=== PATIENT | male | born 1980 | race Caucasian/White ===

== ENCOUNTER 2017-09-27 09:19 | Emergency (ER) | payer BC, OTHER ==
[2017-09-27 09:53] LABS: #Basophils 0.2 thou/uL (0.0-0.2); #Eosinphils 0.2 thou/uL (0.0-0.7); #Lymphocytes 3.4 thou/uL (1.20-3.40); #Monocytes 0.9 thou/uL (0.11-0.59); #Neutrophils 5.6 thou/uL (1.40-6.50); %Basophils 1.6 % (0.0-1.0); %Eosinophils 2.2 % (0.0-10.0); %Lymphocytes 32.8 % (21.0-51.0); %Monocytes 8.9 % (0.0-10.0); %Neutrophils 54.6 % (42.0-75.0); Hemoglobin 14.6 g/dL (14.0-18.0); Mean Corpuscular HGB CONC 33.7 g/dL (32.0-36.0); Mean Corpuscular Hemoglobin 27.8 pg (27.0-31.0); Mean Corpuscular Volume 82.4 fl (80.0-94.0); Platelet Count 301 thou/uL (130-400); RBC Distribution Width 12.7 % (11.5-14.5); Red Blood Cell (RBC) Count 5.24 mill/uL (4.70-6.10); White Blood Cell (WBC) Count 10.2 thou/uL (4.8-10.8)
[2017-09-27 09:55] LABS: INR-International Normal Ratio 0.9
[2017-09-27 09:56] LABS: PTT 27.2 SEC (22.9-36.1)
[2017-09-27 10:06] LABS: ALT (SGPT) 64 U/L (8-55); AST (SGOT) 23 U/L (5-34); Albumin 4.3 g/dL (3.5-5.0); Alkaline Phosphatase 54 U/L (40-150); Anion Gap 14 mmol/L (10-20); BUN (Urea Nitrogen) 14 mg/dL (8.9-20.6); Bilirubin, Total 0.3 mg/dL (0.2-1.2); Calc. Creatinine Clearance 0 mL/min (70-130); Calcium 9.2 mg/dL (7.8-10.44); Carbon Dioxide 22 mmol/L (22-29); Chloride 104 mmol/L (98-107); Estimated GFR-MDRD 90; Globulin 2.3 g/dL (2.4-3.5); Glucose 148 mg/dL (70-105); Lipase 51 U/L (8-78); Potassium 3.4 mmol/L (3.5-5.1); Protein, Total 6.6 g/dL (6.0-8.3); Sodium 137 mmol/L (136-145)
--- NOTE | 2017-09-27 10:36 | CT ---
CT ABDOMEN AND PELVIS WITHOUT CONTRAST: HISTORY: Abdominal pain. Rectal bleeding. COMPARISON: None. FINDINGS: Lung bases are clear. No pericardial effusion. Diffuse hepatic steatosis. Appendix is visualized and is normal. No dilated loops of large or small bowel. No significant diverticular disease. There is a mass in the posterior cortex interpolar right kidney measuring 4.5 x 4.3 x 4.6 cm. There is also a mass of the lateral limb right adrenal gland measuring less than 10 Hounsfield units. This is round and likely adenoma. There is a punctate calculus interpolar left kidney. No evidence of obstructive uropathy. Fat-containing right-sided intraarticular hernia. Appendix is visualized and is normal. The skeleto n is unremarkable. IMPRESSION: 1. Right-sided renal mass posterior cortex interpolar right kidney measuring 4.5 x 4.3 x 4.6 cm conc erning for renal cell carcinoma. 2. Nonobstructive interpolar left renal calculus measuring less than 2 mm. 3. Right adrenal adenoma. 4. Diffuse steatosis. 5. No findings to explain patient's rectal bleeding. Dr. Ramos notified of findings via telephone at 9:58 a.m. CODE CR POS: [facility]
== END 2017-09-27 10:25 | disposition home or self-care (01) ==
LOC: SCSER 09:19
DX: K92.2 Gastrointestinal hemorrhage, unspecified (principal); E11.9 Type 2 diabetes mellitus without complications; I10 Essential (primary) hypertension; I25.10 Atherosclerotic heart disease of native coronary artery without angina pectoris; E66.9 Obesity, unspecified; E78.00 Pure hypercholesterolemia, unspecified; Z87.891 Personal history of nicotine dependence; Z79.891 Long term (current) use of opiate analgesic; Z79.899 Other long term (current) drug therapy
CPT/HCPCS: 74176; 80053; 82274; 83690; 85025; 85610; 85730; 86850; 86900; 86901

== ENCOUNTER 2017-09-29 15:06 | Outpatient (CLI) | payer OTHER ==
[~2017-09-29 15:06] MED LIST: Iopamidol 370 76% 100 ML VIAL ONE
--- NOTE | 2017-09-29 18:20 | CT ---
CT ABDOMEN AND PELVIS WITH AND WITHOUT IV CONTRAST: 09/29/17 HISTORY: Hematochezia. COMPARISON: 09/27/17. FINDINGS: The 0.2 cm calculus within a nondilated calyx of the left kidney is unchanged. Each renal collecting system, ureter, and the urinary bladder are decompressed without filling defect on the delayed images . The lobular heterogeneously enhancing mass at the medial posterior aspect of the right kidney is unch anged in appearance from the exam two days ago. Large adenoma of the right adrenal gland is stable. L iver is diffusely hypodense. No enlarged lymph nodes or free fluid are apparent. IMPRESSION: 1. Aggressive appearing right renal mass is unchanged from the exam two days ago. Renal cell car cinoma is favored. Please consider urologic evaluation. 2. Tiny nonobstructing left renal calculus, stable. 3. Right adrenal adenoma. 4. Hepatic steatosis. 5. No abnormalities are apparent to explain the patient's rectal bleeding. POS: [facility]
== END 2017-09-29 15:07 | disposition home or self-care (01) ==
LOC: CT 15:06
DX: D41.01 Neoplasm of uncertain behavior of right kidney (principal); D30.01 Benign neoplasm of right kidney; N20.0 Calculus of kidney; K76.0 Fatty (change of) liver, not elsewhere classified
CPT/HCPCS: 74178

== ENCOUNTER 2017-10-30 14:47 | Emergency (ER) | payer OTHER ==
[2017-10-30 15:38] LABS: #Basophils 0.2 thou/uL (0.0-0.2); #Eosinphils 0.4 thou/uL (0.0-0.7); #Lymphocytes 1.9 thou/uL (1.20-3.40); #Neutrophils 5.2 thou/uL (1.40-6.50); %Basophils 1.8 % (0.0-1.0); %Eosinophils 4.5 % (0.0-10.0); %Lymphocytes 21.7 % (21.0-51.0); %Neutrophils 60.1 % (42.0-75.0); Hemoglobin 12.8 g/dL (14.0-18.0); Mean Corpuscular HGB CONC 36.1 g/dL (32.0-36.0); Mean Corpuscular Hemoglobin 29.9 pg (27.0-31.0); Mean Corpuscular Volume 82.8 fl (80.0-94.0); Mean Platelet Volume 5.8 fL (7.4-10.4); Platelet Count 289 thou/uL (130-400); White Blood Cell (WBC) Count 8.7 thou/uL (4.8-10.8)
[2017-10-30 15:57] LABS: ALT (SGPT) 31 U/L (8-55); AST (SGOT) 22 U/L (5-34); Albumin 3.7 g/dL (3.5-5.0); Alkaline Phosphatase 50 U/L (40-150); Anion Gap 17 mmol/L (10-20); BUN (Urea Nitrogen) 17 mg/dL (8.9-20.6); Bilirubin, Total 0.3 mg/dL (0.2-1.2); Calc. Creatinine Clearance 0 mL/min (70-130); Calcium 9.5 mg/dL (7.8-10.44); Carbon Dioxide 22 mmol/L (22-29); Chloride 103 mmol/L (98-107); Estimated GFR-MDRD 40; Globulin 3.1 g/dL (2.4-3.5); Glucose 129 mg/dL (70-105); Lipase 33 U/L (8-78); Potassium 3.9 mmol/L (3.5-5.1); Protein, Total 6.8 g/dL (6.0-8.3); Sodium 138 mmol/L (136-145)
[2017-10-30 15:58] LABS: CKMB 0.4 ng/mL (0-6.6); Troponin I Less than 0.010 ng/mL (< 0.028)
[2017-10-30 16:23] LABS: Bilirubin Negative (Negative); Blood, Urine Negative (Negative); Clarity Clear (Clear); Glucose, Urine (Dipstick) Negative (Negative); Leukocyte Negative (Negative); Nitrite Negative (Negative); Protein, Urine (Dipstick) 30 mg/dL (Neg-Trace); Specific Gravity, Urine 1.025 (1.005-1.030); Urobilinogen 0.2 mg/dL (0.2-1.0); pH, Urine 6.5 (5.0-9.0)
[2017-10-30 16:32] LABS: RBC/HPF 0-3 HPF (0-3); Squamous Epithelial 0-3 HPF (0-3); WBC/HPF 0-3 HPF (0-3)
--- NOTE | 2017-11-23 13:29 | EKG ---
Test Reason : Blood Pressure : / mmHG Vent. Rate : 074 BPM Atrial Rate : 074 BPM P-R Int : 182 ms QRS Dur : 088 ms QT Int : 368 ms P-R-T Axes : 025 021 023 degrees QTc Int : 408 ms Normal sinus rhythm Nonspecific T wave abnormality Normal ECG Confirmed by CATHERINE JEFFERY MD ([id number]), film editor supervisor FATEMEH MONTANEZ ([id number]) on 11/23/2017 1:29:14 PM Referred By: JOSE D Confirmed By:CATHERINE JEFFERY MD
== END 2017-10-30 17:15 | disposition home or self-care (01) ==
LOC: SCSER 14:47
DX: R53.1 Weakness (principal); E11.9 Type 2 diabetes mellitus without complications; I10 Essential (primary) hypertension; E66.9 Obesity, unspecified; I25.10 Atherosclerotic heart disease of native coronary artery without angina pectoris; E78.00 Pure hypercholesterolemia, unspecified; Z87.891 Personal history of nicotine dependence; Z79.899 Other long term (current) drug therapy
CPT/HCPCS: 80053; 81003; 81015; 82553; 83690; 84484; 85025; 93005

== ENCOUNTER 2017-11-01 22:38 | Emergency (ER) | payer OTHER ==
--- NOTE | 2017-11-01 23:23 | RAD ---
PA AND LATERAL OF THE CHEST: 11/01/17 INDICATION: History of cough and fever. FINDINGS: No focal consolidation is evident. Heart size is normal. No definite pleural effusion is evident. No acute osseous abnormality is evident. IMPRESSION: No acute cardiopulmonary abnormality. POS: [facility]
[2017-11-01 23:25] LABS: #Basophils 0.2 thou/uL (0.0-0.2); #Eosinphils 0.5 thou/uL (0.0-0.7); #Lymphocytes 3.1 thou/uL (1.20-3.40); #Monocytes 1.1 thou/uL (0.11-0.59); #Neutrophils 5.2 thou/uL (1.40-6.50); %Basophils 1.6 % (0.0-1.0); %Eosinophils 5.3 % (0.0-10.0); %Neutrophils 51.2 % (42.0-75.0); Hemoglobin 12.4 g/dL (14.0-18.0); Mean Corpuscular Hemoglobin 29.1 pg (27.0-31.0); Mean Corpuscular Volume 83.2 fl (80.0-94.0); Mean Platelet Volume 5.7 fL (7.4-10.4); Platelet Count 326 thou/uL (130-400); RBC Distribution Width 12.2 % (11.5-14.5); Red Blood Cell (RBC) Count 4.26 mill/uL (4.70-6.10); White Blood Cell (WBC) Count 10.1 thou/uL (4.8-10.8)
[2017-11-01 23:35] LABS: Anion Gap 14 mmol/L (10-20); BUN (Urea Nitrogen) 17 mg/dL (8.9-20.6); Calc. Creatinine Clearance 0 mL/min (70-130); Calcium 9.2 mg/dL (7.8-10.44); Carbon Dioxide 23 mmol/L (22-29); Chloride 106 mmol/L (98-107); Estimated GFR-MDRD 41; Glucose 121 mg/dL (70-105); Sodium 139 mmol/L (136-145)
== END 2017-11-02 00:10 | disposition home or self-care (01) ==
LOC: SCSER 22:38
DX: R50.9 Fever, unspecified (principal); E11.9 Type 2 diabetes mellitus without complications; E66.9 Obesity, unspecified; I10 Essential (primary) hypertension; E78.00 Pure hypercholesterolemia, unspecified; I25.10 Atherosclerotic heart disease of native coronary artery without angina pectoris; Z87.891 Personal history of nicotine dependence; Z85.528 Personal history of other malignant neoplasm of kidney
CPT/HCPCS: 36415; 71046; 80048; 85025; 87040

== ENCOUNTER 2018-02-10 13:50 | Outpatient (CLI) | payer OTHER ==
--- NOTE | 2018-02-10 14:50 | RAD ---
PELVIS ONE VIEW: History: Pain. Comparison: None. FINDINGS: Mild narrowing of both SI joints. No acute fracture. Os acetabulum on the right. IMPRESSION: No acute fracture or malalignment. POS: [facility]
--- NOTE | 2018-02-10 14:51 | RAD ---
SACRUM AND COCCYX STANDARD: History: Pain. Comparison: None. FINDINGS: There is no acute fracture or malalignment. No erosions. No periostitis. Mild degenerative changes of the right hip. IMPRESSION: No acute abnormality. POS: [facility]
== END 2018-02-10 13:51 | disposition home or self-care (01) ==
LOC: SCSRAD 13:50
PROVIDERS: ATTEND Family Medicine
DX: M53.3 Sacrococcygeal disorders, not elsewhere classified (principal); R10.2 Pelvic and perineal pain; I10 Essential (primary) hypertension
CPT/HCPCS: 72170; 72220

== ENCOUNTER 2018-04-07 11:52 | Emergency (ER) | payer OTHER, SELFPAY ==
--- NOTE | 2018-04-07 14:07 | RAD ---
TWO VIEWS OF THE CHEST: COMPARISON: 11/01/17. HISTORY: Intermittent subjective fever and cough. FINDINGS: Two views of the chest show normal sized cardiomediastinal silhouette. There is no evidence of consol idation, mass, or pleural effusion. The bones are unremarkable. IMPRESSION: No evidence of acute cardiopulmonary disease. POS: [facility]
== END 2018-04-07 13:14 | disposition home or self-care (01) ==
LOC: SCSER 11:52
DX: J06.9 Acute upper respiratory infection, unspecified (principal); I10 Essential (primary) hypertension; B34.9 Viral infection, unspecified; E11.9 Type 2 diabetes mellitus without complications; E66.9 Obesity, unspecified; Z87.891 Personal history of nicotine dependence; Z79.82 Long term (current) use of aspirin; Z79.899 Other long term (current) drug therapy; Z79.891 Long term (current) use of opiate analgesic
CPT/HCPCS: 71046; 87081; 87430; 87804

== ENCOUNTER 2018-04-25 05:21 | Emergency (ER) | payer OTHER, SELFPAY ==
[2018-04-25 07:20] LABS: #Basophils 0.1 thou/uL (0.0-0.2); #Eosinphils 0.2 thou/uL (0.0-0.7); #Lymphocytes 2.8 thou/uL (1.20-3.40); #Monocytes 0.9 thou/uL (0.11-0.59); #Neutrophils 6.1 thou/uL (1.40-6.50); %Basophils 1.2 % (0.0-1.0); %Eosinophils 2.3 % (0.0-10.0); %Monocytes 8.7 % (0.0-10.0); %Neutrophils 59.8 % (42.0-75.0); Hemoglobin 15.5 g/dL (14.0-18.0); Mean Corpuscular HGB CONC 32.4 g/dL (32.0-36.0); Mean Corpuscular Hemoglobin 27.1 pg (27.0-31.0); Mean Corpuscular Volume 83.4 fL (78.0-98.0); Mean Platelet Volume 7.2 fL (7.4-10.4); Platelet Count 242 thou/uL (130-400); RBC Distribution Width 12.3 % (11.5-14.5); Red Blood Cell (RBC) Count 5.73 mill/uL (4.70-6.10); White Blood Cell (WBC) Count 10.1 thou/uL (4.8-10.8)
[2018-04-25 07:27] LABS: Anion Gap 15 mmol/L (10-20); BUN (Urea Nitrogen) 15 mg/dL (8.9-20.6); Calc. Creatinine Clearance 0 mL/min (70-130); Calcium 9.6 mg/dL (7.8-10.44); Carbon Dioxide 21 mmol/L (22-29); Chloride 109 mmol/L (98-107); Estimated GFR-MDRD 51; Glucose 100 mg/dL (70-105); Sodium 141 mmol/L (136-145)
[2018-04-25 07:33] LABS: CKMB 0.7 ng/mL (0-6.6); Troponin I Less than 0.010 ng/mL (< 0.028)
== END 2018-04-25 08:19 | disposition home or self-care (01) ==
LOC: SCSER 05:21
DX: R07.89 Other chest pain (principal); R20.2 Paresthesia of skin; E11.9 Type 2 diabetes mellitus without complications; I10 Essential (primary) hypertension; E66.9 Obesity, unspecified; I25.10 Atherosclerotic heart disease of native coronary artery without angina pectoris; E78.00 Pure hypercholesterolemia, unspecified; Z87.891 Personal history of nicotine dependence; Z79.899 Other long term (current) drug therapy; Z79.82 Long term (current) use of aspirin
CPT/HCPCS: 80048; 82553; 84484; 85025; 93005

== ENCOUNTER 2018-08-09 10:45 | Emergency (ER) | payer OTHER ==
--- NOTE | 2018-08-09 11:52 | RAD ---
LEFT KNEE 4 VIEW SERIES: Date: 08/09/18 INDICATION: Fall with pain and edema. FINDINGS: There is no fracture or dislocation. Minimal osteophytosis is seen. No joint capsular distention. IMPRESSION: No acute osseous abnormality of the left knee. POS: [facility]
== END 2018-08-09 11:57 | disposition home or self-care (01) ==
LOC: SCSER 10:45
DX: M25.462 Effusion, left knee (principal); E11.9 Type 2 diabetes mellitus without complications; I10 Essential (primary) hypertension; E66.9 Obesity, unspecified; I25.10 Atherosclerotic heart disease of native coronary artery without angina pectoris; Z87.891 Personal history of nicotine dependence

== ENCOUNTER 2018-09-01 11:02 | Outpatient (CLI) | payer OTHER ==
--- NOTE | 2018-09-01 13:11 | MRI ---
MRI LEFT KNEE WITHOUT CONTRAST: HISTORY: Medial joint line tenderness. The patient twisted the knee two weeks ago at work. FINDINGS: The anterior as well as posterior cruciate ligaments appear intact. The lateral meniscus is normal in shape and appearance. There is some increased intrameniscal signal change within the body of the medial meniscus, but no definite articular surface tear is seen. The medial and lateral collateral ligaments and the iliotibial band regions are unremarkable. The patellar articular cartilage shows some articular cartilage thinning along the lateral facet, and there are some adjacent changes in the more inferior portion of the trochlear groove, with some stephanie a change of the cartilage and subchondral edema change. This could be related to arthritic change or could be related to a bone contusion in this area. The quadriceps and patellar tendons and the medi al and lateral patellar retinaculum all appear intact. Fairly minimal joint effusion is seen, but there is a large Quijano's cyst. IMPRESSION: 1. No evidence of meniscal or cruciate ligament injury. 2. Area of bone contusion along the lower and lateral margin of the trochlear groove with some edema change within the overlying articular cartilage and some slight thinning to the lateral facet articu lar cartilage. Changes could be on the basis of arthritic change but may be related to a more direct injury, given the patient's history. POS: [facility]
== END 2018-09-01 11:03 | disposition home or self-care (01) ==
LOC: MRI 11:02
PROVIDERS: ATTEND Pediatrics Sports Medicine
DX: S83.207A Unspecified tear of unspecified meniscus, current injury, left knee, initial encounter (principal); S80.02XA Contusion of left knee, initial encounter; M25.462 Effusion, left knee

== ENCOUNTER 2019-04-12 15:56 | Outpatient (CLI) | payer BC ==
[2019-04-12 16:58] LABS: #Basophils 0.1 thou/uL (0.0-0.2); #Eosinphils 0.2 thou/uL (0.0-0.7); #Lymphocytes 3.1 thou/uL (1.20-3.40); #Monocytes 0.9 thou/uL (0.11-0.59); #Neutrophils 4.9 thou/uL (1.40-6.50); %Basophils 0.9 % (0.0-1.0); %Eosinophils 1.7 % (0.0-10.0); %Lymphocytes 33.8 % (21.0-51.0); %Monocytes 10.1 % (0.0-10.0); %Neutrophils 53.5 % (42.0-75.0); Hemoglobin 15.4 g/dL (14.0-18.0); Mean Corpuscular HGB CONC 34.7 g/dL (32.0-36.0); Mean Corpuscular Hemoglobin 29.7 pg (27.0-31.0); Mean Corpuscular Volume 85.7 fL (78.0-98.0); Mean Platelet Volume 6.5 fL (7.4-10.4); Platelet Count 256 thou/uL (130-400); RBC Distribution Width 12.4 % (11.5-14.5); Red Blood Cell (RBC) Count 5.18 mill/uL (4.70-6.10); White Blood Cell (WBC) Count 9.1 thou/uL (4.8-10.8)
[2019-04-12 17:20] LABS: ALT (SGPT) 28 U/L (8-55); AST (SGOT) 16 U/L (5-34); Albumin 4.4 g/dL (3.5-5.0); Alkaline Phosphatase 79 U/L (40-110); Anion Gap 11 mmol/L (10-20); BUN (Urea Nitrogen) 17 mg/dL (8.9-20.6); Bilirubin, Total 0.5 mg/dL (0.2-1.2); Calc. Creatinine Clearance 0 mL/min (70-130); Calcium 9.8 mg/dL (7.8-10.44); Carbon Dioxide 24 mmol/L (22-29); Chloride 108 mmol/L (98-107); Estimated GFR-MDRD 50; Glucose 89 mg/dL (70-105); Protein, Total 7.4 g/dL (6.0-8.3); Sodium 139 mmol/L (136-145)
== END 2019-04-12 15:57 | disposition home or self-care (01) ==
LOC: LABBT 15:56
PROVIDERS: ATTEND Surgery
DX: Z01.818 Encounter for other preprocedural examination (principal); K43.2 Incisional hernia without obstruction or gangrene
CPT/HCPCS: 80053; 85025; 93005; 93010

== ENCOUNTER 2019-04-16 06:00 | Inpatient (IN) | payer BC ==
[2019-04-13 13:18] VITALS: BMI 47.4
[2019-04-16] MEDS ORDERED: Bupivacaine/Epinephrine 0.25% 30 ML VIAL ONE (06:31)
[2019-04-16] MEDS ORDERED: Fentanyl 100 MCG/2 ML VIAL ONE ×4 (06:51→10:12)
[2019-04-16] MEDS ORDERED: Midazolam HCl 2 mg/2 ml Vial ONE (06:52)
[2019-04-16] MEDS ORDERED: SUGAMMADEX SODIUM 500 MG/5 ML VIAL ONE (07:20)
[2019-04-16] MEDS ORDERED: Mag-Al 1200 mg/1200 mg/30 ML UDCUP PO PRN (09:12)
[2019-04-16] MEDS ORDERED: Morphine 2 MG/ML SYRINGE SLOW IVP PRN (09:12)
[2019-04-16] MEDS ORDERED: hydrALAZINE 20 MG/ML VIAL SLOW IVP PRN (09:12)
[2019-04-16] MEDS ORDERED: Dextrose 5% in Water 1,000 ML IV PRN (09:12)
[2019-04-16] MEDS ORDERED: Promethazine HCl 25 MG/ML VIAL IM PRN (09:12)
[2019-04-16] MEDS ORDERED: Morphine 4 MG/ML VIAL SLOW IVP PRN (09:12)
[2019-04-16] MEDS ORDERED: Insulin Regular 300 UNITS/3 ML VIAL SC PRN (09:12)
[2019-04-16] MEDS ORDERED: Dextrose 50% Abboject 50 ML SYRINGE SLOW IVP PRN (09:12)
[2019-04-16] MEDS ORDERED: HYDROcodone/Acetaminophen 10/325 mg Tablet PO PRN ×2 (09:12)
[2019-04-16] MEDS ORDERED: Ondansetron PF 4 MG/2 ML Vial IVP PRN (09:12)
[2019-04-16] MEDS ORDERED: Calcium Carbonate 500 MG ChewTAB PO PRN (09:12)
[2019-04-16] MEDS ORDERED: HYDROmorphone 0.5 MG/0.5 ML SYRINGE ONE (10:00)
[2019-04-16] MEDS ORDERED: Morphine 2 MG/ML SYRINGE ONE (10:57)
[2019-04-16] MEDS ORDERED: HYDROcodone/Acetaminophen 5/325 mg Tablet ONE (11:27)
--- NOTE | 2019-04-16 11:28 | OP ---
DATE OF PROCEDURE: 04/16/2019 PREOPERATIVE DIAGNOSIS: Incisional ventral hernia. PROCEDURE PERFORMED: Laparoscopic ventral hernia repair with mesh. INDICATIONS: The patient is 38-year-old male, who had undergone a laparoscopic cystic nephrectomy, developed a hernia at the extraction site on the left flank. FINDINGS: A 6 x 4 cm ventral hernia. DESCRIPTION OF PROCEDURE: After informed consent was obtained, the patient was taken to the operating room and given general endotracheal anesthesia, placed in the supine position. Abdomen was prepped and draped in usual fashion. Local anesthesia was infiltrated subcutaneously and deep. A transverse incision was performed on the left side. Veress needle was inserted. Drop test was performed. Pneumoperitoneum was created to a volume of 2 L of carbon dioxide. Utilizing a bladeless 12 mm trocar and 0-degree laparoscope, direct visual entry into the abdominal cavity was performed. Pneumoperitoneum was created to a pressure of 15 mmHg. A 0-degree laparoscope was inserted under direct vision. Two 5-mm ports were placed on the left side. The hernia contained omentum. This was taken down utilizing the LigaSure. Part of the falciform was also from the abdominal wall utilizing the LigaSure. The pressure of the abdominal cavity was dropped to 10 mmHg. Using a #1 V-Loc suture made of PDS, the defect was closed with a running suture pattern. Then, a 15 cm PROCEED mesh was fashioned. This was prepared by placing 0 Ethibond of alternating colors on the longitudinal or width-belle area. This was hydrated and rolled, inserted intra-abdominally, then unrolled. Then utilizing a GraNee needle, the sutures were individually grasped to position the mesh optimally over the closed defect. These were tied down and then the mesh was further secured to the abdominal wall with the SecureStrap Tacker. Hemostasis was assured. Trocars and retractors were removed. The skin was closed with interrupted 4-0 Rapide. Dermabond applied. The patient tolerated the procedure well, transferred to Recovery in good condition. Sponge and needle count verified correct x2. Job ID: [id number]
[2019-04-16] MEDS: Piperacillin/Tazobactam 3.375 GM in Sodium Chloride 0.9% 100 ML IVPB SCH ×3 (12:50→23:30)
[2019-04-16] MEDS: Ketorolac Tromethamine 30 MG/ML VIAL IVP SCH ×3 (12:50→23:30)
[2019-04-16] MEDS: Sodium Chloride 0.9% 1,000 ML IV SCH ×3 (12:54→23:29)
[2019-04-16] MEDS ORDERED: ePHEDrine 50 MG/ML VIAL ONE (15:10)
[2019-04-16] MEDS ORDERED: Esmolol 100 MG/10 ML VIAL ONE (15:10)
[2019-04-16] MEDS ORDERED: Lidocaine 1% PF 5 ML VIAL ONE (15:10)
[2019-04-16] MEDS ORDERED: Ondansetron PF 4 MG/2 ML Vial ONE (15:10)
[2019-04-16] MEDS ORDERED: Succinylcholine Chloride 20 MG/ML 10 ml SYRINGE FS ONE (15:10)
[2019-04-16] MEDS ORDERED: PROPOFOL 200 MG/20 ML VIAL ONE (15:10)
[2019-04-16] MEDS ORDERED: Rocuronium Bromide 10 MG/ML (10ML VIAL) ONE (15:10)
[2019-04-16] MEDS: Famotidine 20 MG TAB PO SCH (20:29)
[2019-04-17] MEDS: Famotidine/PF 20 mg/2ml Vial SLOW IVP SCH ×2 (05:09→09:53)
[2019-04-17 05:15] LABS: #Eosinphils 0.2 thou/uL (0.0-0.7); #Lymphocytes 2.9 thou/uL (1.20-3.40); #Monocytes 1.1 thou/uL (0.11-0.59); #Neutrophils 7.3 thou/uL (1.40-6.50); %Basophils 0.2 % (0.0-1.0); %Lymphocytes 24.9 % (21.0-51.0); %Monocytes 9.4 % (0.0-10.0); %Neutrophils 63.4 % (42.0-75.0); Hemoglobin 14.6 g/dL (14.0-18.0); Mean Corpuscular HGB CONC 34.4 g/dL (32.0-36.0); Mean Corpuscular Hemoglobin 29.9 pg (27.0-31.0); Mean Corpuscular Volume 86.8 fL (78.0-98.0); Mean Platelet Volume 6.7 fL (7.4-10.4); Platelet Count 236 thou/uL (130-400); RBC Distribution Width 12.6 % (11.5-14.5); Red Blood Cell (RBC) Count 4.89 mill/uL (4.70-6.10); White Blood Cell (WBC) Count 11.6 thou/uL (4.8-10.8)
[2019-04-17] MEDS: Piperacillin/Tazobactam 3.375 GM in Sodium Chloride 0.9% 100 ML IVPB SCH (05:27)
[2019-04-17] MEDS: Ketorolac Tromethamine 30 MG/ML VIAL IVP SCH (05:28)
[2019-04-17 05:32] LABS: ALT (SGPT) 33 U/L (8-55); AST (SGOT) 15 U/L (5-34); Albumin 3.5 g/dL (3.5-5.0); Alkaline Phosphatase 67 U/L (40-110); Anion Gap 11 mmol/L (10-20); BUN (Urea Nitrogen) 14 mg/dL (8.9-20.6); Bilirubin, Total 0.7 mg/dL (0.2-1.2); Calc. Creatinine Clearance 147 mL/min (70-130); Calcium 8.4 mg/dL (7.8-10.44); Carbon Dioxide 24 mmol/L (22-29); Chloride 105 mmol/L (98-107); Estimated GFR-MDRD 58; Globulin 2.6 g/dL (2.4-3.5); Glucose 109 mg/dL (70-105); Lipase 37 U/L (8-78); Potassium 3.8 mmol/L (3.5-5.1); Protein, Total 6.1 g/dL (6.0-8.3); Sodium 136 mmol/L (136-145)
[2019-04-17 07:50] VITALS: BP 134/80; TEMP 98.1
--- NOTE | 2019-04-17 08:01 | PDOC.GSPN ---
Surgery Progress Note: Subj - Subjective Narrative: Mr. Wilkins is a 38 year old male post op day 1 following laparoscopic ventral hernia repair with mesh. He is doing well this AM. He describes occasional abdominal pain and soreness, mainly on the right side, which he rates as a 5/ 10. Overall, he says the pain is manageable and that pain medication seems to help. He was able to eat solid foods yesterday and tolerated it well. He has not yet had a bowel movement and says he has not passed gas. He has had no difficulty voiding. He has been ambulating well and was able to walk the halls yesterday and this morning. He denies nausea, vomiting. Surgery Progress Note: Obj - Vital signs Vital signs: Vital Signs - Most Recent Temp Pulse Resp BP Pulse Ox 98.1 F 76 18 134/80 95 04/17/19 07:49 04/17/19 07:49 04/17/19 07:49 04/17/19 07:49 04/17/19 07:49 - Physical Exam General: no distress Cardiovascular: regular rate and rhythm Respiratory: clear to auscultation Abdomen: soft, positive bowel sounds, appropriately tender Surgery Progress Note: Results - Labs Result Diagrams: 04/17/19 04:36 04/17/19 04:36 Lab results: Laboratory Results - last 24 hr 04/16/19 04/17/19 04/17/19 22:18 04:36 04:36 WBC 11.6 H RBC 4.89 Hgb 14.6 Hct 42.5 MCV 86.8 MCH 29.9 MCHC 34.4 RDW 12.6 Plt Count 236 MPV 6.7 L Neutrophils % 63.4 Lymphocytes % 24.9 Monocytes % 9.4 Eosinophils % 2.0 Basophils % 0.2 Neutrophils # 7.3 H Lymphocytes # 2.9 Monocytes # 1.1 H Eosinophils # 0.2 Basophils # 0.0 Sodium 136 Potassium 3.8 Chloride 105 Carbon Dioxide 24 Anion Gap 11 BUN 14 Creatinine 1.39 H Estimated GFR (MDRD) 58 Glucose 109 H POC Glucose 93 Calcium 8.4 Total Bilirubin 0.7 AST 15 ALT 33 Alkaline Phosphatase 67 Serum Total Protein 6.1 Albumin 3.5 Globulin 2.6 Albumin/Globulin Ratio 1.3 Lipase 37 04/17/19 05:27 WBC RBC Hgb Hct MCV MCH MCHC RDW Plt Count MPV Neutrophils % Lymphocytes % Monocytes % Eosinophils % Basophils % Neutrophils # Lymphocytes # Monocytes # Eosinophils # Basophils # Sodium Potassium Chloride Carbon Dioxide Anion Gap BUN Creatinine Estimated GFR (MDRD) Glucose POC Glucose 127 H Calcium Total Bilirubin AST ALT Alkaline Phosphatase Serum Total Protein Albumin Globulin Albumin/Globulin Ratio Lipase Surgery Progress Note: A/P - Plan Plan: Mr. Wilkins is a 38 year old male post op day 1 following laparoscopic ventral hernia repair with mesh. 1. Continue oral pain medication as needed 2. Continue diet as tolerated 3. Encourage ambulation
[2019-04-17] MEDS ORDERED: Enoxaparin Sodium 40 MG/0.4 ML SYRINGE SC SCH (09:00)
[2019-04-17] MEDS: Sodium Chloride 0.9% 1,000 ML IV SCH (09:53)
[2019-04-17] MEDS: Famotidine 20 MG TAB PO SCH (09:58)
--- NOTE | 2019-04-17 12:04 | DIS ---
DATE OF ADMISSION: 04/16/2019 DATE OF DISCHARGE: 04/17/2019 DISCHARGE DIAGNOSIS: Incisional ventral hernia. PROCEDURES DURING ADMISSION: Laparoscopic ventral hernia repair with mesh. HOSPITAL COURSE: The patient was admitted, taken to the operating room, where he underwent laparoscopic ventral hernia repair with mesh. Postoperatively, he has done well. He initially had quite a bit of pain that is better now. He is tolerating diet. He is afebrile. He is discharged home on hydrocodone and Zofran. He will follow up with me in 2 weeks. Job ID: [id number]
== END 2019-04-17 10:44 | disposition home or self-care (01) | DRG 355 ==
LOC: SDC 06:00 → SURG B 12:02
PROVIDERS: ADMIT Surgery; ATTEND Surgery
PROC: 0WUF4JZ Supplement Abdominal Wall with Synthetic Substitute, Percutaneous Endoscopic Approach (ICD-10-PCS; principal; 2019-04-16)
DX: K43.2 Incisional hernia without obstruction or gangrene (principal); I10 Essential (primary) hypertension; E78.5 Hyperlipidemia, unspecified; I25.10 Atherosclerotic heart disease of native coronary artery without angina pectoris; E11.9 Type 2 diabetes mellitus without complications; J30.2 Other seasonal allergic rhinitis; Z90.5 Acquired absence of kidney; Z95.5 Presence of coronary angioplasty implant and graft; Z85.528 Personal history of other malignant neoplasm of kidney; Z87.891 Personal history of nicotine dependence
CPT/HCPCS: 36415; 36416; 80053; 83690; 85025; J0690; J1170; J1885; J2001; J2250; J2270; J2405; J2543; J2704; J3010; J3490